=== PATIENT | male | born 1980 | race Two or more races ===

== ENCOUNTER 2025-03-25 19:24 | Emergency (ER) | payer BC, OTHER ==
[~2025-03-25] VITALS: Ht 160 cm; Wt 104.0 kg
--- NOTE | 2025-03-25 19:32 | ED.PDOC ---
GI ASSESSMENT HPI Comments 44-year-old male presents to the ED chief complaint hernia. Patient states history of abdominal hernia for the past four months he notes over the past week pain has become severe 10/10 hernia site mid abdomen along with hardness of the hernia. Patient states history of hernia repair several years ago in the same place. States he has not followed up with his PCP or surgeon as of today. Has no some nausea denies vomiting. Denies chest pain, diarrhea, constipation, difficulty breathing, or shortness of breath. Time Seen by MD: 19:25 Primary Care Provider: SHAYLEE SANTAMARIA Reviewed Notes: Nurses Notes, Medications, Allergies Allergies: Coded Allergies: NO KNOWN ALLERGIES (Unverified , 03/25/25) Home Meds Active Scripts Ciprofloxacin Hcl (Cipro) 500 Mg Tab, 500 MG PO BID for 7 Days, #14 TAB Prov:RIVER SHAFFER 03/25/25 Metronidazole (Flagyl) 500 Mg Tab, 1 TAB PO BID for 7 Days, #14 TAB Prov:RIVER SHAFFER 03/25/25 Information Source: Patient Past Medical History PAST MEDICAL HISTORY: Denies Surgical History: Hernia Repair, Denies all surgeries Family History Family History: Reviewed,noncontributory to illness Social History Smoker: Non-Smoker Alcohol: Denies ETOH Use Drugs: Denies Drug Use Lives In: Home Constitutional: denies: chills, diaphoresis, fatigue, fever, malaise, sweats, weakness, others EENTM: denies: blurred vision, double vision, ear bleeding, ear discharge, ear drainage, ear pain, ear ringing, eye pain, eye redness, hearing loss, mouth pain, mouth swelling, nasal discharge, nose bleeding, nose congestion, nose pain, photophobia, tearing, throat pain, throat swelling, voice changes, others Respiratory: denies: cough, hemoptysis, orthopnea, SOB at rest, shortness of breath, SOB with excertion, stridor, wheezing, others Cardiovascular: denies: chest pain, dizzy spells, diaphoresis, Dyspnea on exertion, edema, irregular heart beat, left arm pain, lightheadedness, palpitations, PND, syncope, others Gastrointestinal: reports: abdomen distended, abdominal pain, nausea; denies: blood streaked bowels, constipated, diarrhea, dysphagia, difficulty swallowing, hematemesis, melena, poor appetite, poor fluid intake, rectal bleeding, rectal pain, vomiting, others Genitourinary: denies: burning, dysuria, flank pain, frequency, hematuria, incontinence, penile discharge, penile sore, pain, testicle pain, testicle swelling, urgency, others Neurological: denies: dizziness, fainting, headache, left sided numbness, left sided weakness, numbness, paresthesia, pre-existing deficit, right sided numbness, right sided weakness, seizure, speech problems, tingling, tremors, weakness, others Musculoskeletal: denies: back pain, gout, joint pain, joint swelling, muscle pain, muscle stiffness, neck pain, others Integumetry: denies: bruises, change in color, change in hair/nails, dryness, laceration, lesions, lumps, rash, wounds, others Allergic/Immunocompromised: denies: Difficulty Healing, Frequent Infections, Hives, Itching, others Hematologic/Lymphatic: denies: anemia, blood clots, easy bleeding, easy bruising, swollen glands, others Endocrine: denies: excessive hunger, excessive sweating, excessive thirst, excessive urination, flushing, intolerance to cold, intolerance to heat, unexpl ained weight gain, unexplained weight loss, others Psychiatric: denies: anxiety, bipolar disorder, depression, hopeless, panic disorder, schizophrenia, sleepless, suicidal, others Physical Exam General Appearance: No Apparent Distress, Normal HEENT: Pharynx Normal Neck: Full Range of Motion Respiratory: Lungs Clear, No Respiratory Distress, Normal Breath Sounds Cardiovascular: No Edema, No JVD, No Murmur, No Gallop, Normal Peripheral Pulses, Regular Rate/Rhythm Breast Exam: Deferred Gastrointestinal: Distended, No Organomegaly, No Pulsatile Mass, Normal Bowel Sounds, Tenderness (Severe tenderness and hardness palpated over large abdominal mass superior umbilicus) Genitalia: Deferred Pelvic: Deferred Rectal: Deferred Extremities: Normal range of motion, Non-tender, No pedal edema Musculoskeletal : Apperance: Normal Neurologic: Alert, justice court deputy clerk II-XII nml as Tested, No Motor Deficits, Normal Affect, Normal Mood, No Sensory Deficits Cerebellar Function: Normal Reflexes: Normal Skin: Dry, Normal Color, Warm Lymphatic: No Adenopathy Was a procedure done? Was a procedure done?: No Sedation Sedation?: No GI differential Dx Differential Diagnosis: Bowel Obstruction, Hernia, Ischemic Bowel, Impaction X-Ray, Labs, Meds, VS Vital Signs Date Time Temp Pulse Resp B/P (MAP) Pulse Ox O2 Delivery O2 Flow Rate FiO2 03/25/25 20:56 79 18 95 Room Air 03/25/25 20:56 98.4 79 18 111/71 (84) 95 98.4 03/25/25 19:45 98.9 95 18 124/96 (105) 96 98.9 Lab Test 03/25/25 20:40 Range/Units White Blood Count 6.4 4.4-10.8 10^3/uL Red Blood Count 5.22 4.5-5.90 10^6/uL Hemoglobin 16.3 13.5-17.5 g/dL Hematocrit 46.4 41.0-53.0 % Mean Corpuscular Volume 89.0 80.0-100.0 fL Mean Corpuscular Hemoglobin 31.3 28.0-32.0 pg Mean Corpuscular Hemoglobin Concent 35.1 32.0-36.0 g/dL Red Cell Distribution Width 13.0 11.8-14.3 % Platelet Count 141 140-450 10^3/uL Mean Platelet Volume 9.3 6.9-10.8 fL Neutrophils (%) (Auto) 63.4 37.0-80.0 % Lymphocytes (%) (Auto) 20.1 10.0-50.0 % Monocytes (%) (Auto) 14.3 H 0.0-12.0 % Eosinophils (%) (Auto) 1.7 0.0-7.0 % Basophils (%) (Auto) 0.5 0.0-2.0 % Neutrophils # (Auto) 4.0 1.6-8.6 10 ^3/uL Lymphocytes # (Auto) 1.3 0.4-5.4 10 ^3/uL Monocytes # (Auto) 0.9 0-1.3 10 ^3/uL Eosinophils # (Auto) 0.1 0-0.8 10 ^3/uL Basophils # (Auto) 0 0-0.2 10 ^3/uL Nucleated Red Blood Cells 0.1 % Sodium Level Pending Potassium Level Pending Chloride Level Pending Carbon Dioxide Level Pending Anion Gap Pending Blood Urea Nitrogen Pending Creatinine Pending Glomerular Filtration Rate Calc Pending BUN/Creatinine Ratio Pending Serum Glucose Pending Calcium Level Pending Total Bilirubin Pending Aspartate Amino Transferase (AST) Pending Alanine Aminotransferase (ALT) Pending Alkaline Phosphatase Pending Total Protein Pending Albumin Pending Lipase Pending X-Ray, Labs, Meds, VS Comment IMPRESSION: Mild colitis involving the descending colon, sigmoid and rectum. Moderate sized fat and small bowel containing supraumbilical hernia with no evidence of obstruction or strangulation. Small fat containing right-sided paraumbilical hernia Script trial of Flagyl and Cipro for mild colitis. Since pain is centered over the abdominal hernia. Morphine four and Zofran for reports improvement in pain also abdominal binder placed patient requesting discharge at this time. Advised to take medications as prescribed side effects discussed. Advised to call his PCP in the morning and schedule a follow up in for referral for general surgery. ER return precautions given patient indicates understanding agrees with discharge plan of care. Time of 1ST Reevaluation: 19:31 Reevaluation 1ST: Unchanged Time of 2ND Reevaluation: 21:18 Reevaluation 2ND: Improved Patient Education/Counseling: Diagnosis, Treatment, Prognosis, Need For Follow Up Family Education/Counseling: No Family Present SEPSIS Sepsis Screen Physician Orders Ct Ab Pel Wo Con-No Oral Or Iv (03/25/25 19:45) Comprehensive Metabolic Panel (03/25/25 19:45) Lipase (03/25/25 19:45) Urinalysis (03/25/25 19:45) Vital Signs Date Time Temp Pulse Resp B/P (MAP) Pulse Ox O2 Delivery O2 Flow Rate FiO2 03/25/25 20:56 79 18 95 Room Air 03/25/25 20:56 98.4 79 18 111/71 (84) 95 98.4 03/25/25 19:45 98.9 95 18 124/96 (105) 96 98.9 Laboratory Tests Test 03/25/25 20:40 White Blood Count 6.4 10^3/uL (4.4-10.8) Departure 1 Departure Time of Disposition: 21:08 Impression: Primary Impression: Non-specific colitis Additional Impression: Abdominal hernia without obstruction and without gangrene Qualified Codes: K45.8 - Other specified abdominal hernia without obstruction or gangrene Disposition: 01 HOME / SELF CARE / HOMELESS Condition: Stable e-Prescriptions Ciprofloxacin Hcl (Cipro) 500 Mg Tab 500 MG PO BID for 7 Days, #14 TAB Prov: EDMUND,RIVER [employer] AND [employer]YING SUPERVISOR 03/25/25 Metronidazole (Flagyl) 500 Mg Tab 1 TAB PO BID for 7 Days, #14 TAB Prov: RIVER SHAFFER 03/25/25 Discharged With: Self Critical Care Note Critical Care Time?: No Stability Stability form required: RIVER Donovan Mar 25, 2025 19:32
--- NOTE | 2025-03-25 20:27 | DVH ---
Exam: CT CT AB PEL WO CON-NO ORAL OR IV History: Severe pain and hardness abdominal hernia Comparison Study: None TECHNIQUE: Multidetector CT of the abdomen and pelvis without IV contrast. Axial, coronal and sagitt al multiplanar reformats were obtained from the axial data set by the technologist. Radiation Dose Information: CT Dose: CTDI volume is 24.72 mGy. Dose-length product is 1401.97 mGy*cm FINDINGS: Bibasilar atelectasis. Mild cardiomegaly. Mild hepatomegaly. Otherwise, liver, spleen, gallbladder, pancreas and adrenal glands unremarkable. Kidneys, ureters and urinary bladder unremarkable. Prostate is unremarkable. Stomach is unremarkable. Small bowel loops unremarkable. Moderate sized supraumbilical hernia contai yazan fat and small bowel segment within the proximal portion with no evidence of obstruction or stran gulation. Small fat containing right paraumbilical hernia. Appendix is unremarkable. Mild wall thickening of the descending colon, sigmoid and rectum. Moderate amount of fecal material within the ascending and transverse colons. No evidence of intraperitoneal free air or free fluid. No evidence of aortic aneurysm. No significant lymphadenopathy. Small fat containing bilateral inguinal hernias. Soft tissues unremarkable. No destructive osseous le sions are noted. IMPRESSION: Mild colitis involving the descending colon, sigmoid and rectum. Moderate sized fat and small bowel containing supraumbilical hernia with no evidence of obstruction o r strangulation. Small fat containing right-sided paraumbilical hernia
[2025-03-25 20:56] VITALS: TEMP 98.4
[2025-03-25 20:58] LABS: Hematocrit 46.4 % (41.0-53.0); Hemoglobin 16.3 g/dL (13.5-17.5); Mean Corpuscular Hemoglobin 31.3 pg (28.0-32.0); Mean Corpuscular Volume 89.0 fL (80.0-100.0); Nucleated Red Blood Cells % 0.1 %
[2025-03-25 21:00] VITALS: O2SAT 98
[2025-03-25] MEDS: MORPHINE SULFATE 4 MG/ML SYR/VIAL IV ONE (21:00)
[2025-03-25] MEDS: ONDANSETRON HCL 4 MG/2 ML VIAL IV ONE (21:00)
[2025-03-25] MEDS ORDERED: CIPR-173 PO (21:09)
[2025-03-25] MEDS ORDERED: METR-344 PO (21:09)
[2025-03-25 21:14] LABS: Albumin 4.4 g/dL (3.2-4.8); Alkaline Phosphatase 109 U/L (46-116); Anion Gap 10 (5-15); BUN/Creatinine Ratio 19.2 (10.0-20.0); Bilirubin, Total 1.0 mg/dL (0.2-1.0); Blood Urea Nitrogen 19 mg/dL (9-23); Calcium 9.1 mg/dL (8.7-10.4); Carbon Dioxide 22 mmol/L (20-31); Lipase 28 U/L (12-53); Potassium 3.8 mmol/L (3.5-5.1); Sodium 140 mmol/L (136-145); Total Protein 7.2 g/dL (5.7-8.2)
[2025-03-25 21:23] LABS: Alanine Aminotransferase 45 U/L (7-40); Chloride 108 mmol/L (98-107); Glucose 107 mg/dL (74-106)
[2025-03-25 21:30] VITALS: BP 110/88; PULSE 88; RESP 17
== END 2025-03-25 21:53 | disposition home or self-care (01) ==
LOC: ER 19:24
DX: K52.9 Noninfective gastroenteritis and colitis, unspecified (principal); K42.9 Umbilical hernia without obstruction or gangrene; Z98.890 Other specified postprocedural states
CPT/HCPCS: 36415; 74176; 80053; 83690; 85025; 96374; 96375; 99285; J2270; J2405